=== PATIENT | female | born 1955 | race American Indian/Alaskan Native ===

== ENCOUNTER 2021-09-24 06:18 | Emergency (ER) | payer MEDICARE ==
[2021-09-24] MEDS ORDERED: ZIPRASIDONE MESYLATE 20 MG VIAL IM ONE (10:30)
[2021-09-24] MEDS ORDERED: FAMOTIDINE 20 MG/2 ML INJ IV ONE (10:58)
[2021-09-24] MEDS ORDERED: SODIUM CHLORIDE 0.9% 1000 ML 1,000 ML IV ONE (10:59)
[2021-09-24 11:30] LABS: Basophils % (Auto) 0.2 % (0.0-1.8); Eosinophils % (Auto) 0.2 % (0.0-4.3); Hematocrit 41.6 % (30.3-42.9); Hemoglobin 13.9 gm/dl (10.1-14.3); Lymphocytes # (Auto) 1.8 K/mm3 (1.2-5.4); Lymphocytes % (Auto) 23.8 % (13.4-35.0); Mean Corpuscular HGB Conc 33 % (30-34); Mean Corpuscular Volume 96 fl (79-97); Monocytes # (Auto) 0.3 K/mm3 (0.0-0.8); Monocytes % (Auto) 3.4 % (0.0-7.3); Platelet Count 215 K/mm3 (140-440); Red Blood Count 4.35 M/mm3 (3.65-5.03); Red Cell Distribution Width 12.9 % (13.2-15.2)
[2021-09-24 11:35] LABS: Calcium 9.9 mg/dL (8.4-10.2)
--- NOTE | 2021-09-24 12:25 | Cat Scan Report ---
CT HEAD WITHOUT CONTRAST INDICATION / CLINICAL INFORMATION: headache, vomiting. TECHNIQUE: All CT scans at this location are performed using CT dose reduction for ALARA by means of automated exposure control. COMPARISON: None available. FINDINGS: HEMORRHAGE: None. EXTRA-AXIAL SPACES: Normal in size and morphology for the patient's age. VENTRICULAR SYSTEM: Normal in size and morphology for the patient's age. CEREBRAL PARENCHYMA: Bilateral chronic lacunar infarcts in the basal ganglia. Hyperattenuation right basal ganglia without associated edema, likely physiologic calcification. Smaller calcifications left basal ganglia. Chronic right RN ASSESSMENT territory infarction. Additional encephalomalacia related to chroni c infarction in the right frontal lobe. Periventricular and subcortical white matter hypoattenuation is likely related to microangiopathic change. MIDLINE SHIFT / HERNIATION: None. CEREBELLUM / BRAINSTEM: No significant abnormality. ORBITS: Normal as visualized. SOFT TISSUES: No significant abnormality. SKULL: No significant abnormality. PARANASAL SINUSES / MASTOID AIR CELLS: Normal as visualized. ADDITIONAL FINDINGS: None. IMPRESSION: 1. No acute intracranial abnormality. 2. Advanced microangiopathic change and multi territorial chronic infarctions. Signer Name: Cuco Emery MD Signed: 09/24/2021 12:21 PM Workstation Name: [id number]
[2021-09-24 12:27] LABS: Albumin 4.2 g/dL (3.9-5)
--- NOTE | 2021-09-24 12:38 | XRay Report ---
XR chest 1V ap INDICATION / CLINICAL INFORMATION: chest pain . COMPARISON: None available. FINDINGS: SUPPORT DEVICES: None. HEART /PULMONARY VASCULATURE: No significant abnormality. LUNGS / PLEURA: No significant pulmonary or pleural abnormality. No pneumothorax. ADDITIONAL FINDINGS: No significant additional findings. IMPRESSION: 1. No acute findings. Signer Name: Juan May MD Signed: 09/24/2021 12:34 PM Workstation Name: [id number]
[2021-09-24 14:07] LABS: Color,Urine Yellow (Yellow)
[2021-09-24 14:14] LABS: Bacteria,Urine 1+ /HPF (Negative); Mucus,Urine FEW /HPF
[2021-09-24] MEDS ORDERED: cefTRIAXone/NS 1 GM/50 ML 1 GM/50 ML BAG IV ONE (14:37)
--- NOTE | 2021-09-24 14:50 | Emergency Department Report ---
HPI - General Chief Complaint: Nausea/Vomiting/Diarrhea PUI?: No Time Seen by Provider: 09/24/21 10:17 - HPI HPI: 66-year-old female with multiple medical comorbidities brought in by EMS for reports of elevated blood pressure readings at home as well as nausea and vomiting. Patient states she awoke this morning feeling nauseated and had multiple episodes of watery nonbloody vomiting. She states that her blood pressure demonstrate a systolic pressure of greater than 200 and diastolic greater than 100. She not take any medication for her blood pressure today but states that she is typically compliant with her blood pressure medicine. She denies any headache but states she had one earlier in the morning. Headache was not acute in onset it was not thunderclap and was not the worst headache of her life. She denies falls or head trauma. Pain currently 0-10. Patient also denies chest pain shortness of breath difficulty breathing palpitations abdominal pain. She reports mild burning and discomfort with urination. Abdominal pain currently 0-10 ED Past Medical Hx - Past Medical History Previous Medical History?: Yes Hx Hypertension: Yes Hx CVA: Yes Hx Diabetes: Yes Hx Asthma: Yes - Surgical History Past Surgical History?: Yes Additional Surgical History: Hysterectomy - Social History Smoking Status: Never Smoker Substance Use Type: None - Medications Home Medications: Home Medications Medication Instructions Recorded Confirmed Last Taken Type Ondansetron [Zofran Odt] 4 mg PO Q8HR 3 Days #12 tab.rapdis 09/24/21 Unknown Rx cephALEXin [Keflex] 500 mg PO Q6HR #28 capsule 09/24/21 Unknown Rx ED Review of Systems ROS: Stated complaint: NAUSEA/VOMITING/MATHEW Other details as noted in HPI Comment: All other systems reviewed and negative Physical Exam - Physical Exam Vital Signs: Vital Signs 09/24/21 09/24/21 09/24/21 06:19 09:29 09:30 Temperature 98.3 F Pulse Rate 67 67 71 Respiratory 18 23 15 Rate Blood Pressure 195/86 155/81 O2 Sat by Pulse 100 100 100 Oximetry 09/24/21 09/24/21 09/24/21 09:31 09:33 09:45 Temperature 98.2 F Pulse Rate 70 Respiratory 18 29 H Rate Blood Pressure 174/78 O2 Sat by Pulse 100 96 Oximetry 09/24/21 09/24/21 09/24/21 10:00 10:16 10:30 Temperature Pulse Rate 80 75 72 Respiratory 19 23 22 Rate Blood Pressure 174/78 149/80 174/78 O2 Sat by Pulse 100 98 97 Oximetry 09/24/21 09/24/21 09/24/21 10:46 11:00 11:16 Temperature Pulse Rate 67 78 79 Respiratory 14 24 17 Rate Blood Pressure 137/89 137/89 137/89 O2 Sat by Pulse 98 100 99 Oximetry 09/24/21 09/24/21 09/24/21 11:30 11:46 12:00 Temperature Pulse Rate 64 65 60 Respiratory 17 15 15 Rate Blood Pressure 137/89 163/73 170/80 O2 Sat by Pulse 97 97 99 Oximetry 09/24/21 09/24/21 09/24/21 12:16 12:30 12:46 Temperature Pulse Rate 64 64 61 Respiratory 15 15 15 Rate Blood Pressure 163/73 163/73 167/76 O2 Sat by Pulse 100 100 100 Oximetry 09/24/21 09/24/21 13:00 13:16 Temperature Pulse Rate 65 65 Respiratory 17 16 Rate Blood Pressure 163/73 157/78 O2 Sat by Pulse 99 98 Oximetry General: Gen: pt is well appearing, no acute distress HEENT: Normocephalic atraumatic pupils equally round and reactive to light extraocular muscles intact sclera anicteric Neck: Full range of motion, no midline spinal tenderness palpation, no JVD, no carotid bruits, no nuchal rigidity CVS: S1-S2 regular rate and rhythm with no gallops rubs or murmurs, chest wall nontender Pulmonary: Clear to auscultation bilaterally, no wheezes rales or rhonchi Abdomen: Soft nondistended nontender no guarding or rebound tenderness, no palpable deformities or step-offs, normal active bowel sounds, no hepatosplenomegaly, no pulsatile masses : Deferred Extremities: No cyanosis no clubbing no edema, intact distal peripheral pulses, Integumentary: Skin normal, no petechia no purpura no abscess no lacerations no evidence of trauma no evidence of infection Neuro: Patient is awake alert and oriented to person place time situation, mentating well, cranial nerves II through XII intact, no focal neurodeficits, sensation grossly tact, unable to test gait at this time although patient reports she is minimally ambulatory at baseline secondary to prior CVAs Psych: Calm cooperative, mood affect normal ED Course Vital Signs 09/24/21 09/24/21 09/24/21 06:19 09:29 09:30 Temperature 98.3 F Pulse Rate 67 67 71 Respiratory 18 23 15 Rate Blood Pressure 195/86 155/81 O2 Sat by Pulse 100 100 100 Oximetry 09/24/21 09/24/21 09/24/21 09:31 09:33 09:45 Temperature 98.2 F Pulse Rate 70 Respiratory 18 29 H Rate Blood Pressure 174/78 O2 Sat by Pulse 100 96 Oximetry 09/24/21 09/24/21 09/24/21 10:00 10:16 10:30 Temperature Pulse Rate 80 75 72 Respiratory 19 23 22 Rate Blood Pressure 174/78 149/80 174/78 O2 Sat by Pulse 100 98 97 Oximetry 09/24/21 09/24/21 09/24/21 10:46 11:00 11:16 Temperature Pulse Rate 67 78 79 Respiratory 14 24 17 Rate Blood Pressure 137/89 137/89 137/89 O2 Sat by Pulse 98 100 99 Oximetry 09/24/21 09/24/21 09/24/21 11:30 11:46 12:00 Temperature Pulse Rate 64 65 60 Respiratory 17 15 15 Rate Blood Pressure 137/89 163/73 170/80 O2 Sat by Pulse 97 97 99 Oximetry 09/24/21 09/24/21 09/24/21 12:16 12:30 12:46 Temperature Pulse Rate 64 64 61 Respiratory 15 15 15 Rate Blood Pressure 163/73 163/73 167/76 O2 Sat by Pulse 100 100 100 Oximetry 09/24/21 09/24/21 13:00 13:16 Temperature Pulse Rate 65 65 Respiratory 17 16 Rate Blood Pressure 163/73 157/78 O2 Sat by Pulse 99 98 Oximetry - Reevaluation(s) Reevaluation #1: 09/24/21 14:48 Patient reassessed. She is comfortable and well-appearing, denies any complaints, we will continue to monitor, she denies any active nausea vomiting chest pain shortness of breath difficulty breathing palpitations abdominal pain back or flank pain, pain 0-10. ED Medical Decision Making - Lab Data Result diagrams: 09/24/21 10:30 09/24/21 10:30 - EKG Data -: EKG Interpreted by Me EKG shows normal: sinus rhythm Rate: normal - EKG Data When compared to previous EKG there are: no significant change 09/24/21 14:48 EKG interpreted by me: Ventricular rate 65 bpm. P waves are present and proceed every QRS complex. Intervals normal. No ST segment depressions or elevations. No T wave fl attening or inversions. No ectopic. No arrhythmia. Normal axis. Left ventricular perjury. - Radiology Data Radiology results: report reviewed - Medical Decision Making 66-year-old female presents for evaluation of nausea and vomiting. Vital signs stable. Patient is well-appearing on examination. She had no witnessed or reported episodes of vomiting while here. She remained hemodynamically stable and neurovascular intact. Serum labs as well as urinalysis results reviewed. Patient treated with Rocephin. Prescription for Keflex and Diflucan given. Diagnostic imaging negative for acute pathology. He underwent serial abdominal examinations by me and her abdomen remains soft nondistended nontender without guarding or rebound tenderness. Her EKG demonstrates no acute ischemic pathology or evolving arrhythmia or dysrhythmia. The patient is stable for discharge home. Critical care attestation.: If time is entered above; I have spent that time in minutes in the direct care of this critically ill patient, excluding procedure time. ED Disposition Clinical Impression: UTI (urinary tract infection), Vomiting Disposition: 01 HOME / SELF CARE / HOMELESS Is pt being admited?: No Does the pt Need Aspirin: No Condition: Stable Instructions: Urinary Tract Infection, Adult, Vomiting, Adult Additional Instructions: You were found today to have a urinary tract infection. You were given antibiot ics through your IV. You may start taking your antibiotic prescription tomorrow. Please be sure to take all of your antibiotics and until the entire prescription has been completed. Take Zofran as needed for nausea. Call your doctor in 1 business day to schedule immediate follow-up appointment for reassessment and further management. This is very important. Return to the nearest emergency department as soon as possible if you develop severe or worsening nausea, vomiting, inability tolerate liquids or solids, persistent headaches, abdominal pain, chest pain, or if any other new worrisome symptoms develop Prescriptions: cephALEXin [Keflex] 500 mg PO Q6HR #28 capsule Ondansetron [Zofran Odt] 4 mg PO Q8HR 3 Days #12 tab.rapdis Referrals: PRIMARY CARE, [Primary Care Provider] - 3-5 Days
[2021-09-24 17:18] VITALS: BP 154/72
--- NOTE | 2021-09-27 13:47 | Electrocardiograph Report ---
[facility] Test Date: 2021-09-24 Test Time: 11:30:12 Pat Name: ANA CROCKETT Department: Room: Gender: F [employer] U[employer]rer: ANISA : 1955 Requested By: EMIL GUO Order Number: [id number] Reading MD: Romario Hill Measurements Intervals [place] Rate: 65 P: 38 ND: 198 QRS: -29 QRSD: 78 T: 107 QT: 403 QTc: 420 Interpretive Statements Sinus rhythm Left ventricular hypertrophy Anterior Q waves, possibly due to LVH Nonspecific T abnormalities, lateral leads No previous ECG available for comparison Electronically Signed On 09-27-2021 13:46:43 EDT by Romario Hill
== END 2021-09-24 17:45 | disposition home or self-care (01) ==
LOC: ED 06:18
DX: N39.0 Urinary tract infection, site not specified (principal); R11.2 Nausea with vomiting, unspecified; E11.9 Type 2 diabetes mellitus without complications; J45.909 Unspecified asthma, uncomplicated; R51.9 Headache, unspecified; Z86.73 Personal history of transient ischemic attack (TIA), and cerebral infarction without residual deficits
CPT/HCPCS: 36415; 70450; 71045; 80053; 81001; 85025; 93005; 96361; 96365; 96375; 99285; J0696; J3490; J7030